=== PATIENT | female | born 1940 | race Caucasian/White ===

== ENCOUNTER → 2016-12-01 | Outpatient (CLI) | payer MEDICARE, MEDICAID ==
[~2016-12-01] MED LIST: ASPIRIN81 M1 PO; BACTRIM DS 8001 TA1 PO; CEFAZOLIN SODIU IV; CEFAZOLIN2 GM/20 M1 IV; CEPHALEXIN500 M1 PO; EC NAPROSYN500 MG PO; FLONASE0.05 MG/AC NS; HYDROCODONE BIT1 T11 PO; LIPITOR20 MG PO; METOPROLOL SUC100 M1 PO; MIRALAX POWDER17 G1 PO; NABUMETONE500 M1 PO; NORCO 5-325 TA1 EACH PO; OYSTER SHELL CA1 TAB PO; PRILOSEC20 MG PO; ROBITUSSIN DM 105 ML PO; XALATAN 2.5 ML2.5 M1 OU; XALATAN 2.5 ML2.5 ML OU; ZITHROMAX250 MG PO
--- NOTE | ~2016-12-01 | PR ---
[place], [place] PROGRESS NOTE NAME: GUERO LEYVA [facility] #: [id number] UNIT #: [id number] ROOM: DOCTOR: KIMO LLAMAS DPM BIRTHDATE: [birth year] DOS: 12/01/2016 SUBJECTIVE: The patient is seen today on 12/01/2016. The patient is status post amputation of right great toe. The patient is doing well without any new complaints. OBJECTIVE: Upon physical exam, it is noted that the ulcerative area and surgical incision has healed nicely. There is no open wound at this time. Today, the patient will be discharged for this complaint because she is healed. The patient is to keep a Band-Aid on it just for protection over the next week or 2 and she can wean into regular shoe. The patient will be discharged from [facility] as healed. KIMO LLAMAS DPM CM:GEORGE [id number] [id number] KIMO LLAMAS DPM 12/01/16 1132 interface
== END ==
LOC: WOUNDCARE 03:10
DX: L97.512 Non-pressure chronic ulcer of other part of right foot with fat layer exposed (principal); M86.00 Acute hematogenous osteomyelitis, unspecified site; Z89.421 Acquired absence of other right toe(s)

== ENCOUNTER 2017-06-14 10:28 | Emergency (ER) | payer MEDICARE, MEDICAID ==
[~2017-06-14] VITALS: Ht 160 cm; Wt 57.2 kg
[2017-06-14 10:33] VITALS: BP 144/78
[2017-06-14] MEDS ORDERED: HYDROCODONE BIT1 T11 PO (12:23)
== END 2017-06-14 12:39 | disposition home or self-care (01) ==
LOC: ED 10:28
DX: S82.831A Other fracture of upper and lower end of right fibula, initial encounter for closed fracture (principal); I10 Essential (primary) hypertension; E78.5 Hyperlipidemia, unspecified; K21.9 Gastro-esophageal reflux disease without esophagitis; Z88.1 Allergy status to other antibiotic agents; Z79.899 Other long term (current) drug therapy; W10.9XXA Fall (on) (from) unspecified stairs and steps, initial encounter; Y93.89 Activity, other specified; Y92.9 Unspecified place or not applicable; Y99.9 Unspecified external cause status

== ENCOUNTER 2017-07-15 09:44 | Emergency (ER) | payer MEDICARE, MEDICAID ==
[~2017-07-15] VITALS: Ht 160 cm; Wt 58.1 kg
[2017-07-15 09:51] VITALS: BP 149/82
[2017-07-15 10:45] LABS: BASO # 0.1 10*3/uL (0.0-0.1); BASO % 0.9 % (0.0-1.0); EOS # 0.2 10*3/uL (0.0-0.4); EOS % 1.7 % (1.0-4.0); HEMATOCRIT 40.4 % (37.0-47.0); HEMOGLOBIN 12.8 g/dl (12.0-16.0); IG # 0.1 10*3/uL (0.0-0.1); LYMPH # 1.5 10*3/uL (1.3-4.4); LYMPH % 16.4 % (27.0-41.0); MEAN CELL VOLUME 93.7 fl (81.0-99.0); MEAN CORPUSCULAR HGB 29.7 pg (27.0-31.0); MEAN CORPUSCULAR HGB CONC 31.7 g/dl (33.0-37.0); MEAN PLATELET VOLUME 11.1 fl (9.6-12.3); MONO # 0.7 10*3/uL (0.1-1.0); MONO % 7.2 % (3.0-9.0); NEUT # 6.6 10*3/uL (2.3-7.9); NEUT % 73.2 % (47.0-73.0); PLATELET COUNT AUTOMATED 224 10*3/uL (130-400); RED BLOOD COUNT 4.31 10*6/uL (4.10-5.10); RED CELL DISTRI WIDTH 13.3 % (0-14.5)
[2017-07-15 10:54] LABS: PROTHROMBIN TIME 10.4 SECONDS (9.0-12.4)
[2017-07-15 11:02] LABS: ALBUMIN 3.8 gm/dl (3.1-4.5); ALKALINE PHOSPHATASE 73 U/L (45-117); BILIRUBIN, TOTAL 0.4 mg/dl (0.2-1.0); BUN 20 mg/dl (7-24); C-REACTIVE PROTEIN 0.39 MG/DL (0-0.3); CARBON DIOXIDE 27 mmol/L (21-32); CHLORIDE 110 mmol/L (98-107); CKMB 1.6 ng/ml (0.5-3.6); CPK 75 U/L (26-192); EST GLOM FILT AFRICAN AMERICAN > 60 ml/min; GLUCOSE 86 mg/dL (65-99); MAGNESIUM 1.9 mg/dL (1.5-2.1); POTASSIUM 4.2 mmol/L (3.5-5.1); SGOT/AST 31 IU/L (3-35); SGPT/ALT 26 U/L (12-78); SODIUM 139 mmol/L (136-145); TOTAL PROTEIN 7.2 gm/dL (6.4-8.2); TROPONIN I < 0.015 ng/ml (<0.045)
== END 2017-07-15 13:37 | disposition home or self-care (01) ==
LOC: ED 09:44 → EDHOLD 11:28 → ED 13:37
PROVIDERS: Emergency Medicine
DX: I82.412 Acute embolism and thrombosis of left femoral vein (principal); K21.9 Gastro-esophageal reflux disease without esophagitis; E78.5 Hyperlipidemia, unspecified; I10 Essential (primary) hypertension; Z90.710 Acquired absence of both cervix and uterus; Z98.890 Other specified postprocedural states; Z79.899 Other long term (current) drug therapy

== ENCOUNTER 2017-10-26 10:49 | Emergency (ER) | payer MEDICARE, MEDICAID ==
[~2017-10-26] VITALS: Ht 160 cm; Wt 63.5 kg
[2017-10-26 10:58] VITALS: BP 141/88
[2017-10-26 11:56] LABS: BASO % 0.5 % (0.0-1.0); EOS # 0.1 10*3/uL (0.0-0.4); EOS % 0.9 % (1.0-4.0); HEMOGLOBIN 12.9 g/dl (12.0-16.0); LYMPH # 0.5 10*3/uL (1.3-4.4); MEAN CELL VOLUME 90.7 fl (81.0-99.0); MEAN CORPUSCULAR HGB 29.3 pg (27.0-31.0); MEAN CORPUSCULAR HGB CONC 32.3 g/dl (33.0-37.0); MEAN PLATELET VOLUME 11.3 fl (9.6-12.3); MONO # 0.6 10*3/uL (0.1-1.0); MONO % 9.6 % (3.0-9.0); NEUT # 5.3 10*3/uL (2.3-7.9); NEUT % 81.5 % (47.0-73.0); PLATELET COUNT AUTOMATED 217 10*3/uL (130-400); RED BLOOD COUNT 4.41 10*6/uL (4.10-5.10); RED CELL DISTRI WIDTH 13.5 % (0-14.5); WHITE BLOOD COUNT 6.5 10*3/uL (4.8-10.8)
[2017-10-26 12:11] LABS: ALBUMIN 3.5 gm/dl (3.1-4.5); ALKALINE PHOSPHATASE 47 U/L (45-117); BUN 16 mg/dl (7-24); CHLORIDE 108 mmol/L (98-107); CREATININE 0.82 mg/dL (0.55-1.02); LIPASE 156 U/L (73-393); POTASSIUM 4.5 mmol/L (3.5-5.1); SGOT/AST 24 IU/L (3-35); SGPT/ALT 19 U/L (12-78); SODIUM 140 mmol/L (136-145); TOTAL PROTEIN 6.9 gm/dL (6.4-8.2)
[2017-10-26 12:25] LABS: BILIRUBIN NEGATIVE (NEGATIVE); BLOOD TRACE-INTACT (NEGATIVE); CLARITY SL CLOUDY (CLEAR); COLOR YELLOW (YELLOW); GLUCOSE NEGATIVE (NEGATIVE); KETONE TRACE (NEGATIVE); LEUKO ESTERASE NEGATIVE (NEGATIVE); NITRITE NEGATIVE (NEGATIVE); UROBILINOGEN 0.2 E.U./dl (0.2-1.0)
[2017-10-26 12:36] LABS: MUCOUS 2+; RBC 0-2 rbc/hpf (0-2); WBC 0-2 wbc/hpf (0-5)
[2017-10-26] MEDS ORDERED: Zofran4 MG PO (13:29)
== END 2017-10-26 13:42 | disposition home or self-care (01) ==
LOC: ED 10:49
PROVIDERS: Emergency Medicine
DX: K29.70 Gastritis, unspecified, without bleeding (principal); E78.5 Hyperlipidemia, unspecified; I10 Essential (primary) hypertension; K21.9 Gastro-esophageal reflux disease without esophagitis; Z86.718 Personal history of other venous thrombosis and embolism; Z90.710 Acquired absence of both cervix and uterus

== ENCOUNTER 2017-10-30 08:59 | Emergency (ER) | payer MEDICARE, MEDICAID ==
[~2017-10-30] VITALS: Ht 160 cm; Wt 60.8 kg
[~2017-10-30 08:59] MED LIST changes: +Zofran4 MG PO
[2017-10-30 10:26] VITALS: BP 137/84
[2017-10-30] MEDS ORDERED: ANUSOL-HC25 MG R (12:46)
== END 2017-10-30 13:47 | disposition home or self-care (01) ==
LOC: ED 08:59
DX: K59.00 Constipation, unspecified (principal); K64.4 Residual hemorrhoidal skin tags; K21.9 Gastro-esophageal reflux disease without esophagitis; E78.5 Hyperlipidemia, unspecified; I10 Essential (primary) hypertension; Z90.710 Acquired absence of both cervix and uterus; Z79.899 Other long term (current) drug therapy; Z86.718 Personal history of other venous thrombosis and embolism

== ENCOUNTER → 2017-11-03 | Outpatient (CLI) | payer MEDICARE, MEDICAID ==
[~2017-11-03] MED LIST changes: +ANUSOL-HC25 MG R
== END | disposition home or self-care (01) ==
LOC: MAMMO 07:59
DX: Z12.31 Encounter for screening mammogram for malignant neoplasm of breast (principal)

== ENCOUNTER → 2017-12-01 | Outpatient (CLI) | payer MEDICARE, MEDICAID | END | disposition home or self-care (01) | LOC: MAMMO 11-24 09:30 | DX: R92.8 Other abnormal and inconclusive findings on diagnostic imaging of breast (principal) ==

== ENCOUNTER → 2017-12-14 | Day surgery (SDC) | payer MEDICARE, MEDICAID ==
[2017-12-14 11:34] LABS: ACT PARTIAL THROMBO TIME 23.8 SECONDS (20.8-31.5)
== END | disposition home or self-care (01) ==
LOC: SDC 12-13 12:00
PROVIDERS: Nurse Practitioner Gerontology
DX: C50.912 Malignant neoplasm of unspecified site of left female breast (principal); I10 Essential (primary) hypertension; E78.5 Hyperlipidemia, unspecified; K21.0 Gastro-esophageal reflux disease with esophagitis; I82.402 Acute embolism and thrombosis of unspecified deep veins of left lower extremity; Z79.01 Long term (current) use of anticoagulants; Z88.8 Allergy status to other drugs, medicaments and biological substances

== ENCOUNTER → 2018-02-01 | Outpatient (CLI) | payer OTHER | END | disposition home or self-care (01) | LOC: US 12:09 | DX: I82.403 Acute embolism and thrombosis of unspecified deep veins of lower extremity, bilateral (principal); C50.912 Malignant neoplasm of unspecified site of left female breast; I82.419 Acute embolism and thrombosis of unspecified femoral vein; I82.512 Chronic embolism and thrombosis of left femoral vein ==

== ENCOUNTER 2020-10-31 11:06 | Emergency (ER) | payer OTHER, MEDICAID ==
[~2020-10-31] VITALS: Ht 160 cm; Wt 66.7 kg
[~2020-10-31 11:06] MED LIST changes: +ELIQUIS5 M1 PO
[2020-10-31 11:18] VITALS: BP 143/76
== END 2020-10-31 13:28 | disposition home or self-care (01) ==
LOC: ED 11:06
DX: S60.222A Contusion of left hand, initial encounter (principal); Z79.899 Other long term (current) drug therapy; W19.XXXA Unspecified fall, initial encounter; Y93.89 Activity, other specified; Y92.89 Other specified places as the place of occurrence of the external cause; Y99.8 Other external cause status

== ENCOUNTER 2021-06-28 08:36 | Emergency (ER) | payer OTHER, MEDICAID ==
[~2021-06-28] VITALS: Ht 160 cm; Wt 66.2 kg
[2021-06-28 08:43] VITALS: BP 156/79
== END 2021-06-28 11:05 | disposition home or self-care (01) ==
LOC: ED 08:36
DX: M79.662 Pain in left lower leg (principal); M79.652 Pain in left thigh; R26.2 Difficulty in walking, not elsewhere classified; K21.9 Gastro-esophageal reflux disease without esophagitis; E78.5 Hyperlipidemia, unspecified; I10 Essential (primary) hypertension; Z79.899 Other long term (current) drug therapy; Z98.890 Other specified postprocedural states; Z90.711 Acquired absence of uterus with remaining cervical stump; Z86.718 Personal history of other venous thrombosis and embolism

== ENCOUNTER → 2021-09-19 | Outpatient (CLI) | payer OTHER, MEDICAID | END | disposition home or self-care (01) | LOC: RAD 10:14 | PROVIDERS: ATTEND Internal Medicine | DX: M16.0 Bilateral primary osteoarthritis of hip (principal); M25.752 Osteophyte, left hip; M25.751 Osteophyte, right hip ==